=== PATIENT | female | born 1930 | race Caucasian/White ===

== ENCOUNTER 2018-07-20 12:20 | Inpatient (IN) | payer OTHER ==
[~2018-07-20] VITALS: Ht 170.2 cm; Wt 88.9 kg
--- NOTE | ~2018-07-20 | H ---
[facility] [place] [address] HISTORY AND PHYSICAL Name: NELLY BARBOSA Room #: 419-P ADM IN M.R.#: [id number] Admission: 07/20/18 Attend Phys: Srinivas Simental MD Discharge: Date of : [birth year] Report #: [id number] THIS REPORT FOR: //name// CC: Srinivas Rollins [place] DATE OF SERVICE: 07/20/2018 CHIEF COMPLAINT: Shortness of breath. HISTORY OF PRESENT ILLNESS: The patient is an 87-year-old female sent to the Emergency Room from [facility] for evaluation of some abnormal lab work and general weakness with shortness of breath for several days. Said she has not been eating and drinking well at her care facility, has been a little short of breath with some nonspecific abdominal pain. Lab work was obtained, which revealed creatinine of 1.6 and she was directed to the Emergency Room today; however, now she is showing signs of lactic acidosis with acute renal failure and acute coronary syndrome. An echocardiogram has been obtained revealing an ejection fraction around 20% and CTA showing diffuse atherosclerotic disease. There are also signs of lactic acidosis. PAST MEDICAL HISTORY: Diabetes type 2, hypertension, dyslipidemia. PAST SURGICAL HISTORY: Cholecystectomy, appendectomy. FAMILY HISTORY: Noncontributory. SOCIAL HISTORY: She has been living at [facility] for a number of years. No chronic alcohol or tobacco use. ALLERGIES: None. MEDICATIONS: Imdur, aspirin, potassium, torsemide, losartan, metformin, Zocor, vitamin D, atenolol, glimepiride. REVIEW OF SYSTEMS: She just complains of some nausea, difficulty breathing. No headache, chest pain, fever, chills, vomiting, diarrhea, dysuria, syncope. PHYSICAL EXAMINATION: VITAL SIGNS: Pulse 93, blood pressure 84/55, temperature 36, pulse 56, respirations 18. GENERAL: She is an elderly lady, looks cachectic, is awake. HEAD AND NECK: Unremarkable. LUNGS: Clear anteriorly. HEART: Regular. ABDOMEN: Soft, normoactive bowel sounds, nontender. [facility] [address] [place] [address] HISTORY AND PHYSICAL Name: NELLY BARBOSA Room #: 419-P [facility] IN M.R.#: [id number] Admission: 07/20/18 Attend Phys: Srinivas Simental MD Discharge: Date of : [birth year] Report #: [id number] EXTREMITIES: No edema. She is pale appearing. NEUROLOGIC: She moves all extremities, global strength about 3/5. LABORATORY DATA: Reviewed. Troponin 1.5. BNP is . Lactic acid is 10, pH 7.1, pCO2 of 12, pO2 of 127 on 3 liters nasal cannula. Chest x-ray reveals interstitial infiltrate and pleural effusions, potassium 5.6, creatinine 2.6. ASSESSMENT: 1. Acute coronary syndrome. 2. Non-ST elevation myocardial infarction. 3. Acute systolic congestive heart failure. 4. Cardiomyopathy, ejection fraction 20%. 5. Metabolic acidosis. 6. Acute renal failure. 7. Atherosclerosis. 8. Diabetes type 2. 9. Probable cardiogenic shock. PLAN: Extensive conversations have been held amongst the patient, daughters, the ER physician, Dr. Milligan and Dr. Buck. I visited with him as well and spoke with Dr. Milligan and the ER physician. At this point, the patient and her family are requesting a do not resuscitate status and palliative care. It appears she has a very systemic process here with acute cardiac decompensation of which she is not likely to survive or improve with aggressive invasive treatment at her advanced age and diffuse process. Therefore, her wishes and family's wishes will be respected of palliative care. Situation appears terminal. <ELECTRONICALLY SIGNED> By: Srinivas Simental MD 07/21/18 0919 [id number] [id number] Srinivas Simental MD /nt
--- NOTE | ~2018-07-20 | D ---
[facility] [place] [address] DISCHARGE SUMMARY Name: NELLY BARBOSA Room #: 419-P [facility] IN M.R.#: [id number] Admission: 07/20/18 Attend Phys: Srinivas Simental MD Discharge: 07/21/18 Date of : [birth year] Report #: [id number] THIS REPORT FOR: //name// CC: Srinivas Kessler DATE OF SERVICE: 07/22/2018 FINAL DIAGNOSES: 1. Acute coronary syndrome. 2. Acute systolic congestive heart failure. 3. Ischemic cardiomyopathy, ejection fraction 20%. 4. Metabolic acidosis. 5. Acute renal failure. 6. Atherosclerosis. 7. Diabetes type 2. 8. Cardiogenic shock. HOSPITAL COURSE: The patient was admitted from her long-term care facility with shortness of breath, general weakness and malaise for several days. She had also reported loss of appetite for some time. Diagnostic evaluation was performed through the ER and has been well documented. Dr. Kessler, her attending at the care facility spoke to the ER physician and with conversations with the patient and her daughter ultimately elected palliative care treatment. She had a drastic change in EF 10-20% and elevated creatinine about 2.6 and a metabolic acidosis suggesting acute renal failure and cardiogenic shock related to poor perfusion. She was treated conservatively with symptomatic palliative care measures. I spoke to the patient and her daughters at the bedside the day after admission. We continued palliative care treatment overnight. She began developing periods of apneic breathing and was pronounced from her underlying illness around 10:30 p.m. Please see the nursing note. <ELECTRONICALLY SIGNED> By: Srinivas Simental MD 07/23/18 1104 1028 1050 Srinivas Simental MD /nt
--- NOTE | ~2018-07-20 | 2DMMODE ---
[facility] [employer] [place] [address] 2 D/M-MODE ECHOCARDIOGRAM Name: NELLY BARBOSA Room #: REG [facility]#: [id number] Admission: 07/20/18 Attend Phys: Discharge: Date of : [birth year] Date of Service: 07/20/18 1604 Report #: [id number] THIS REPORT FOR: //name// APPROVED REPORT Study performed: 07/20/2018 15:14:37 EXAM: Comprehensive 2D, Doppler, and color-flow Echocardiogram Patient Location: ER Room #: 11 Status: stat BSA: 2.00 HR: 78 bpm BP: 92/45 mmHg Rhythm: NSR Other Information Study Quality: Adequate Indications Hypotension Diabetes Dyspnea 2D Dimensions RVDd: 43.76 mm IVSd: 10.86 (7-11mm) LVOT Diam: 19.17 (18-24mm) LVDd: 60.34 mm PWd: 7.95 (7-11mm) Ascending Ao: 29.94 (22-36mm) LVDs: 52.22 (25-40mm) Aortic Root: 33.53 mm IVC: 28.00 mm Volumes Left Atrial Volume (Systole) Single Plane 4CH: 118.93 mL Single Plane 2CH: 65.42 mL LA ESV Index: 49.00 mL/m2 Aortic Valve AoV Peak Guicho.: 0.96 m/s AO Peak Gr.: 3.69 mmHg LVOT Max P.10 mmHg LVOT Max V: 0.52 m/s DAISY Vmax: 1.58 cm2 Mitral Valve E/A Ratio: 1.8 [facility] [address] [place] [address] 2 D/M-MODE ECHOCARDIOGRAM Name: FAMILIANELLY LINDSAYINE Room #: REG ER [facility]#: [id number] Admission: 07/20/18 Attend Phys: Discharge: Date of : [birth year] Date of Service: 07/20/18 1604 Report #: [id number] MV Decel. Time: 111.85 ms MV E Max Guicho.: 1.16 m/s MV A Guicho.: 0.66 m/s MV PHT: 32.44 ms IVRT: 110.73 ms Pulmonary Valve PV Peak Guicho.: 0.54 m/s PV Peak Gr.: 1.18 mmHg NJ End Vmax: 1.09 m/s Pulmonary Vein P Vein S: 0.19 m/s P Vein A: 0.13 m/s P Vein D: 0.34 m/s P Vein A Dur.: 55.4 msec P Vein S/D Ratio: 0.56 Tricuspid Valve TR Peak Guicho.: 2.85 m/s TR Peak Gr.: 32.45 mmHg PA Pressure: 47.00 mmHg Left Ventricle Left ventricle is dilated. There is normal left ventricular wall thickness. Left ventricular ejection fraction is severely decreased. Inferolateral and inferior wall are severely hypokinetic LVEF is 25-30%. Grade IV - fixed restrictive diastolic dysfunction. Right Ventricle Right ventricle is dilated. Right ventricle is hypokinetic. Atria Left atrium is dilated. Right atrium is dilated. Aortic Valve The aortic valve is mildly calcified Trace aortic regurgitation. There is no aortic valvular stenosis. Mitral Valve Mitral annular calcification Severe mitral regurgitation No evidence of mitral valve stenosis. Tricuspid Valve The tricuspid valve is normal in structure. There is mild tricuspid regurgitation. Estimated PAP 45 mmHg. There is moderate pulmonary hypertension. [facility] [employer] [place] [address] 2 D/M-MODE ECHOCARDIOGRAM Name: NELLY BARBOSA [id number] Admission: 07/20/18 Attend Phys: Discharge: Date of : [birth year] Date of Service: 07/20/18 1604 Report #: [id number] Pulmonic Valve The pulmonary valve is normal in structure. Mild pulmonic regurgitation. Great Vessels The aortic root is normal in size. The inferior vena cava is dilated with no inspiratory collapse. Pericardium There is no pericardial effusion. <Conclusion> Left ventricular ejection fraction is severely decreased. Inferolateral and inferior wall are severely hypokinetic LVEF is 25-30%. Both atria are dilated. The aortic valve is mildly calcified. Trace aortic regurgitation, no stenosis. Mitral annular calcification, mildly sclerotic leaflets. Severe mitral regurgitation There is mild tricuspid regurgitation. Estimated pulmonary artery pressure of 45 mmHg. There is no pericardial effusion. <ELECTRONICALLY SIGNED> By: Guillermo Buck MD, FACC 07/20/181603 03 03 Guillermo Buck MD, FACC /INF
--- NOTE | ~2018-07-20 | EKG ---
[address] [place] [address] ELECTROCARDIOGRAM REPORT Name: NELLY BARBOSA Room #: 419-P ADM IN M.R.#: [id number] Admission: 07/20/18 Attend Phys: Srinivas Simental MD Discharge: Date of : [birth year] Report #: [id number] THIS REPORT FOR: //name// [facility] ED Test Date: 2018-07-20 Test Time: 13:58:05 Pat Name: NELLY BARBOSA Department: Room: 419 P Gender: F [employer]inter: WAQAR : 1930 Requested By: Yfn Wren Order Number: [id number] MD: Guillermo Buck Measurements Intervals [place] Rate: 79 P: 85 SC: 177 QRS: -49 QRSD: 144 T: 130 QT: 420 QTc: 482 Interpretive Statements Sinus rhythm Nonspecific IVCD with LAD Anteroseptal infarct, old Nonspecific ST and T wave abnormality Compared to ECG 04/29/2018 07:44:13 Atrial premature complex(es) no longer present Electronically Signed On 07-21-2018 7:33:37 [employer] by Guillermo Buck [email or web address] <ELECTRONICALLY SIGNED> By: Guillermo Buck MD, [facility] 07/21/18 0733 1358 1358 Guillermo Buck MD, [facility] /EPI
[~2018-07-20 12:20] MED LIST: ACTOS15 MG PO; ADALAT CC60 MG PO; ALLEGRA180 MG PO; AMARYL4 MG PO; ASPIR 8181 MG PO; ASPIRIN EC81 M1 PO; ASPIRIN325 PO; ATENOLOL 100MG100 M2 PO; ATENOLOL 50 MG50 M1 PO; BACTROBAN15 GM TP; CEFUROXIME250 MG PO; CELEXA 20 MG TA20 M1 PO; CEPHALEXIN 500500 M2 PO; CINNAMON ALPHA1 EACH PO; CINNAMON PLUS1 EACH PO; CINNAMON PO; COLACE100 MG PO; COZAAR 25 MG TA25 M2 PO; COZAAR 50 MG TA50 M2 PO; DEMADEX20 MG PO; FOLGARD TABLET1 EAC1 PO; GINGER ROOT550 MG PO; GLUCOPHAGE500 MG PO; GLUCOSE1 EACH PO; HYDROCODON-ACE1 EAC7 PO; IMDUR 60 MG TAB60 M1 PO; KLOR-CON 10 ER10 MEQ PO; LASIX 40 MG TAB40 M1 PO; LEVOXYL50 MCG PO; LEVOXYL88 MCG PO; LISINOPRIL40 MG PO; LOSARTAN POTAS100 MG PO; METFORMIN HCL500 MG PO; PLAVIX 75 MG TA75 MG PO; POTASSIUM20 PO; QUESTRAN PACKET4 GM PO; ROBAXIN 750 MG750 M1 PO; SIMVASTATIN40 MG PO; SIMVASTATIN80 MG PO; TRIAMCINOLONE A15 G1 TOP; TRIAMCINOLONE A80 G2 TOP; TUSSIN DM LIQU118 ML PO; VITAMIN B-12500 MCG PO; VITAMIN D1000 UNI1 PO; VITAMIN D2000 UNIT PO; VITAMINC500 PO
[2018-07-20 12:27] VITALS: BP 84/55
[2018-07-20 13:07] LABS: ABSOLUTE NEUTROPHILS 11.8 thou/uL (1.4-8.2); BASOPHILS 0.1 % (0.0-2.0); HEMATOCRIT 36.4 % (37.0-47.0); HEMOGLOBIN 12.1 gm/dL (12.0-15.0); LYMPHOCYTES 6.3 % (24.0-44.0); MCH 30.4 pg (26.0-34.0); MCHC 33.2 g/dL (28.0-37.0); MCV 91.5 fL (80.0-100.0); MONOCYTES 3.1 % (1.0-8.0); PLATELET COUNT 328 thou/uL (150-400); POLYS 90.5 % (36.0-66.0); RBC 3.98 mil/uL (4.20-5.00); RDW 15.3 % (10.5-14.5)
[2018-07-20 13:09] LABS: CREATININE 2.6 mg/dL (0.6-1.0); POTASSIUM 5.6 mmol/L (3.5-5.1)
[2018-07-20 13:29] LABS: URINE BILIRUBIN NEGATIVE (Negative); URINE BLOOD 1+ (Negative); URINE CLARITY CLOUDY; URINE COLOR YELLOW; URINE GLUCOSE-RANDOM* NEGATIVE (Negative); URINE KETONES NEGATIVE (Negative); URINE NITRITE-REFLEX NEGATIVE (Negative); URINE PROTEIN (DIPSTICK) 2+ (Negative); URINE SPECIFIC GRAVITY >= 1.030 (1.005-1.035); URINE UROBILINOGEN 0.2 E.U./dl (0.2-1.0)
[2018-07-20 13:31] LABS: URINE LEUKOCYTES-REFLEX 1+ (Negative)
[2018-07-20 13:38] LABS: BACTERIA-REFLEX >30 Many /HPF (None Seen); CASTS None Seen /LPF (None Seen); CRYSTALS None Seen /LPF (None Seen); SQUAMOUS 0-3 Few /LPF (0-3)
[2018-07-20 13:39] LABS: URINE RBC 3-10 Few /HPF (0-2); URINE WBC-REFLEX 0-5 Rare /HPF (0-5)
[2018-07-20] MEDS ORDERED: TYLENOL EXTRA500 MG PO (14:03)
[2018-07-20] MEDS ORDERED: AMARYL4 MG PO (14:03)
[2018-07-20] MEDS ORDERED: CLOBETASOL EMOL15 GM TOP (14:04)
[2018-07-20 14:45] LABS: BE(vivo) -21.4 mmol/L (-2 to +3); HCO3 4.6 mmol/L (22.0-26.0); sO2 97.8 % (92.0-98.0)
[2018-07-20 14:46] LABS: PCO2 12.7 mmHg (35.0-45.0); pH 7.176 (7.360-7.450)
[2018-07-20 17:04] VITALS: BP 92/52
[2018-07-20 17:54] VITALS: BP 92/52
[2018-07-20 18:19] VITALS: BP 78/59
[2018-07-20 19:24] VITALS: BP 78/56
[2018-07-21 04:10] VITALS: BP 99/56
[2018-07-21 08:00] VITALS: BP 98/56
[2018-07-21 17:41] VITALS: BP 92/42
[2018-07-21 19:15] VITALS: BP 158/75
[2018-07-21 19:30] VITALS: BP 103/42
== END 2018-07-21 21:42 ==
LOC: ER 12:20 → EROBS 16:43 → 4E 16:43
PROVIDERS: Emergency Medicine
PROC: 5A09357 Assistance with Respiratory Ventilation, Less than 24 Consecutive Hours, Continuous Positive Airway Pressure (ICD-10-PCS; principal; 2018-07-20)
DX: I21.4 Non-ST elevation (NSTEMI) myocardial infarction (principal); I50.21 Acute systolic (congestive) heart failure; N17.9 Acute kidney failure, unspecified; E87.2 Acidosis; R57.0 Cardiogenic shock; E11.9 Type 2 diabetes mellitus without complications; I11.0 Hypertensive heart disease with heart failure; E78.00 Pure hypercholesterolemia, unspecified; I25.5 Ischemic cardiomyopathy; I25.10 Atherosclerotic heart disease of native coronary artery without angina pectoris; Z86.73 Personal history of transient ischemic attack (TIA), and cerebral infarction without residual deficits; Z90.49 Acquired absence of other specified parts of digestive tract; Z90.710 Acquired absence of both cervix and uterus; Z79.02 Long term (current) use of antithrombotics/antiplatelets; Z79.82 Long term (current) use of aspirin; Z79.84 Long term (current) use of oral hypoglycemic drugs; Z79.899 Other long term (current) drug therapy
CPT/HCPCS: 10084